=== PATIENT | female | born 1955 | race Caucasian/White ===

== ENCOUNTER 2022-01-14 08:11 | Outpatient (CLI) | payer MEDICARE, OTHER, SELFPAY ==
[2022-01-14 11:35] LABS: Cholesterol* 186 mg/dL (90-199)
[2022-01-14 11:36] LABS: HDL Cholesterol* 60 mg/dL (>=50); LDL Cholesterol Calculated 106 mg/dL (<100); Triglycerides* 101 mg/dL (40-149)
[2022-01-16 12:44] LABS: Albumin* 4.4 g/dL (3.3-5.0); Chloride* 103 mmol/L (96-114); Sodium* 140 mmol/L (135-149)
[2022-01-16 12:45] LABS: Potassium* 4.3 mmol/L (3.6-5.1)
[2022-01-16 12:47] LABS: Alkaline Phosphatase* 79 U/L (40-150); Aspartate Amino Transferase* 31 U/L (12-35); Bilirubin Total* 1.5 mg/dL (0.1-1.5); Blood Urea Nitrogen* 22 mg/dL (7-30); Carbon Dioxide* 27 mmol/L (20-32); Creatinine* 0.8 mg/dL (0.5-1.5); Estimated Glomerular Filt Rate 81 ml/min; Glucose* 108 mg/dL (60-115); Total Protein* 6.5 g/dL (6.0-8.3)
[2022-01-16 12:48] LABS: Alanine Aminotransferase* 25 U/L (4-35); Calcium* 9.4 mg/dL (8.4-10.6)
== END 2022-01-14 08:12 | disposition home or self-care (01) ==
LOC: NFLDREF 08:12
PROVIDERS: PCP Family Medicine; Visit Provider Family Medicine
DX: Z01.419 Encounter for gynecological examination (general) (routine) without abnormal findings (principal); E78.00 Pure hypercholesterolemia, unspecified; E03.9 Hypothyroidism, unspecified; E66.9 Obesity, unspecified; R74.8 Abnormal levels of other serum enzymes; R17 Unspecified jaundice
CPT/HCPCS: 80053; 80061; 84443

== ENCOUNTER 2022-02-13 15:01 | Outpatient (CLI) | payer MEDICARE, OTHER, SELFPAY ==
--- NOTE | 2022-02-13 15:20 | CRLHL7_ITS ---
For Patients: As a result of the Century Cures Act, medical imaging exams and procedure reports are released immediately into your electronic medical record. You may view this report before your referring provider. If you have questions, please contact your health care provider. BILATERAL SCREENING MAMMOGRAM WITH COMPUTER-AIDED DETECTION AND TOMOSYNTHESIS TECHNIQUE: CC and MLO views were obtained. These mammographic images have been obtained using full-field digital technique. These mammographic images were interpreted with the benefit of computer-aided detection. Breast Tomosynthesis was used in this interpretation. COMPARISON FILM: 02/12/21, 02/10/20, 02/04/19. FINDINGS: There are scattered areas of fibroglandular density IMPRESSION: There is no radiographic evidence for malignancy. ASSESSMENT: BI-RADS Category 1: Negative RECOMMENDATION: Routine screening mammogram in 1 year. A lay language report of this examination will be provided to the patient. Mo Pinzon M.D. Diagnostic Radiologist [email or web address] ALAINA/Dictated by: Mo Pinzon MD @ 02/14/2022 12:32:00 PM (Electronically Signed)
== END 2022-02-13 15:02 | disposition home or self-care (01) ==
LOC: MAMMO 15:05
PROVIDERS: PCP Family Medicine; Visit Provider Family Medicine
DX: Z12.31 Encounter for screening mammogram for malignant neoplasm of breast (principal)
CPT/HCPCS: 77063; 77067

== ENCOUNTER 2023-01-19 08:03 | Outpatient (CLI) | payer MEDICARE, OTHER, SELFPAY | END 2023-01-19 08:04 | disposition home or self-care (01) | LOC: NFLDREF 10:40 | PROVIDERS: PCP Family Medicine; Referring Provider Family Medicine; Visit Provider Family Medicine | DX: Z00.00 Encounter for general adult medical examination without abnormal findings (principal); E78.00 Pure hypercholesterolemia, unspecified; D64.9 Anemia, unspecified; R79.89 Other specified abnormal findings of blood chemistry; E03.9 Hypothyroidism, unspecified | CPT/HCPCS: 80053; 80061; 84439; 84443 ==

== ENCOUNTER 2023-02-17 13:29 | Outpatient (CLI) | payer MEDICARE, OTHER, SELFPAY ==
--- NOTE | 2023-02-17 13:40 | CRLHL7_ITS ---
For Patients: As a result of the Century Cures Act, medical imaging exams and procedure reports are released immediately into your electronic medical record. You may view this report before your referring provider. If you have questions, please contact your health care provider. BILATERAL SCREENING MAMMOGRAM WITH COMPUTER-AIDED DETECTION AND TOMOSYNTHESIS TECHNIQUE: CC and MLO views were obtained. These mammographic images have been obtained using full-field digital technique. These mammographic images were interpreted with the benefit of computer-aided detection. Breast Tomosynthesis was used in this interpretation. COMPARISON FILM: 02/13/22, 02/12/21, 02/10/20. FINDINGS: There are scattered areas of fibroglandular density IMPRESSION: There is no radiographic evidence for malignancy. ASSESSMENT: BI-RADS Category 2: Benign RECOMMENDATION: Routine screening mammogram in 1 year. A lay language report of this examination will be provided to the patient. Mo Pinzon M.D. Diagnostic Radiologist [email or web address] ALAINA/Dictated by: Mo Pinzon MD @ 02/18/2023 12:06:00 PM (Electronically Signed)
== END 2023-02-17 13:30 | disposition home or self-care (01) ==
LOC: MAMMO 13:30
PROVIDERS: PCP Family Medicine; Visit Provider Family Medicine
DX: Z12.31 Encounter for screening mammogram for malignant neoplasm of breast (principal)
CPT/HCPCS: 77063; 77067

== ENCOUNTER 2023-10-14 15:27 | Outpatient (CLI) | payer MEDICARE, OTHER, SELFPAY | END 2023-10-14 15:28 | disposition home or self-care (01) | LOC: NFLDREF 10-16 10:56 | PROVIDERS: PCP Family Medicine; Referring Provider Family Medicine; Visit Provider Family Medicine | DX: E03.9 Hypothyroidism, unspecified (principal) | CPT/HCPCS: 84443 ==

== ENCOUNTER 2023-10-20 09:04 | Outpatient (CLI) | payer MEDICARE, OTHER, SELFPAY | END 2023-10-20 09:05 | disposition home or self-care (01) | LOC: NFLDREF 10-21 07:04 | PROVIDERS: PCP Family Medicine; Referring Provider Family Medicine; Visit Provider Family Medicine | DX: E03.9 Hypothyroidism, unspecified (principal) | CPT/HCPCS: 84439; 84443 ==

== ENCOUNTER 2023-11-30 16:00 | Outpatient (CLI) | payer MEDICARE, OTHER, SELFPAY | END 2023-11-30 16:01 | disposition home or self-care (01) | LOC: NFLDREF 12-03 07:10 | PROVIDERS: PCP Family Medicine; Referring Provider Family Medicine; Visit Provider Family Medicine | DX: E03.9 Hypothyroidism, unspecified (principal) | CPT/HCPCS: 84443 ==

== ENCOUNTER 2024-01-26 07:30 | Outpatient (CLI) | payer MEDICARE, OTHER, SELFPAY ==
--- OUTSIDE RECORDS SUMMARY | 2024-01-26 12:27 | XMS_ITS | Clinical Summary ---
Author Organization [facility] Address [place], [place] [address] Care Team Providers Care Gis Coordinator Name Role Phone Glenn Waggoner MD Primary Care Provider + [phone] Allergies Active Allergy Reactions Criticality Noted Date Comments Amoxicillin Hives 02/02/2007 Sulfamethoxazole-Trimethoprim Hives 2006 Medications Medication Sig Dispensed Refills Start Date End Date Status levothyroxine (SYNTHROID) 150 mcg tablet 08/21/2020 Active atorvastatin (LIPITOR) 20 mg tablet 07/19/2020 Active multivitamin (Multiple Vitamins) tablet Take 1 Tablet by mouth once daily. 0 09/13/2020 Active Cinnamon Bark (Cinnamon) 500 mg capsule Takes 1000 mg a day 0 09/13/2020 Active vit O-wncvx-svsqis-bioflv -rudolph 1,000-50-50 mg TbER Take by mouth. 0 09/13/2020 Active Calcium-Cholecalcifer ol, D3, (Calcium 600 + D,3,) 600 mg calcium- 200 unit cap Take by mouth. 0 09/13/2020 Active Zwrfu-1-TED-EPA-Fish Oil (Fish Oil) 1,000 mg (120 mg-180 mg) cap Take by mouth. 0 09/13/2020 Active CPAPIndications:DEBI (obstructive sleep apnea) CPAP machine for home use at pressure 10cm/H2O, nasal mask x1/3month with nasal cushion x2/mo 1 Each 11 12/03/2022 Active Active Problems Problem Noted Date Diagnosed Date DEBI HST 07/29/2016 AHI-16 09/13/2020 Breast cancer 09/13/2008 Unspecified hypothyroidism 09/13/2008 Family History Medical History Relation Name Comments Thyroid Disease Brother Heart Disease Father DC at 39 and a gain at 61, last one fatal Thyroid Disease Mother Diabetes Paternal Grandfather Relation Name Status Comments Brother Father (Age 61) Mother Paternal Grandfather Social History Tobacco Use Types Packs/Day Years Used Date Smoking Tobacco: Never Smokeless Tobacco: Never Tobacco Cessation:Counseling Given: Yes Alcohol Use Standard Drinks/Week Comments Yes 0 (1 standard drink = 0.6 oz pur e alcohol) occ Social Connections Answer Date Recorded Frequency of Communication with Friends and Fami ly Not on file 06/08/2021 Financial Resource Strain Answer Date R ecorded Difficulty of Paying Living Expenses Not on file 06/08/2021 Difficulty of Paying Living Expenses Not on file 06/08/2021 Sex and Gender Information Value Date Recorded Sex Assigned at Not on file Gender Identity Not on file Sexual Orientation Not on file Obstetrics History Para Term AB IAB SAB Ectopic Multiple Livin g Live Births 2 Last Filed Vital Signs Vital Sign Reading Time Taken Comments Blood Pressure 148/87 12/03/2022 2:59 PM CDT Pulse 55 12/03/2022 2:59 PM CDT Temperature 37.4 ??C (99.4 ??F) 09/15/2008 1 0:47 AM CDT Respiratory Rate - - Oxygen Saturation 100% 12/03/2022 2:59 PM CDT Inhaled Oxygen Concentration - - Weight 80.6 kg (177 lb 12.8 oz) 12/03/2022 2:59 PM CDT Height 170.5 cm (5' 7.13) 12/03/2022 2:59 PM CD T Body Mass Index 27.74 12/03/2022 2:59 PM CDT Plan of Treatment Health Maintenance Due Date Last Done Comments Tdap 12/11/1966 Depression screening for age 12+ 1967 Hepatitis C screening for ag e 18-79 12/11/1973 Tetanus booster 1975 Lipids for age 45-75 12/11/2000 Mammogram for age 45-75 12/11/2000 Zoster (shingles) series for age 50+ (1 of 2) 12/11/2005 Colonoscopy through age 75 02/02/2017 02/02/2007 DEXA/DXA scan for age 65+ 12/11/2020 Medicare Wellness for age 65+ 12/11/2020 Pneumococcal series for age 65+ (1 of 1 - PCV) 12/11/2020 COVID-19 vaccine series (2022-24 season) 2023 03/27/2022, 10/01/2021, 04/12/2021, Additional history exists BMI (ht and wt on same day) for age 18+ 12/04/2023 12/03/2022, 09/13/2020 Influenza for age 65+ 02/07/2024 Care Teams Gis Coordinator Relationship Specialty Start Date End Date Glenn Waggoner MD [address] [place] [id number] PCP - General 02/02/07
== END 2024-01-26 07:31 | disposition home or self-care (01) ==
PROVIDERS: PCP Family Medicine; Referring Provider Family Medicine; Visit Provider Family Medicine
DX: Z00.00 Encounter for general adult medical examination without abnormal findings (principal); E78.00 Pure hypercholesterolemia, unspecified; E03.9 Hypothyroidism, unspecified; E05.80 Other thyrotoxicosis without thyrotoxic crisis or storm; D72.819 Decreased white blood cell count, unspecified
CPT/HCPCS: 80053; 80061; 82248; 84443

== ENCOUNTER 2024-03-25 14:43 | Outpatient (CLI) | payer MEDICARE, OTHER, SELFPAY ==
--- OUTSIDE RECORDS SUMMARY | 2024-03-25 14:46 | XMS_ITS | Clinical Summary ---
Author Organization [facility] Address [place], [place] [address] Care Team Providers Care Upkeep Mechanic Name Role Phone Glenn Waggoner MD Primary Care Provider + [phone] Allergies Active Allergy Reactions Criticality Noted Date [...] mg a day 0 09/13/2020 Active vit E-abrtv-fustme-bioflv -rudolph 1,000-50-50 mg TbER Take by mouth. 0 09/13/2020 Active Calcium-Cholecalcifer ol, D3, (Calcium 600 + D,3,) 600 mg calcium- 200 unit cap Take by mouth. 0 09/13/2020 Active Ojnii-0-CBL-EPA-Fish Oil (Fish Oil) 1,000 mg (120 mg-180 [...] Comments Thyroid Disease Brother Heart Disease Father [place] at 39 and a gain at 61, [...] 65+ (1 of 1 - PCV) 12/11/2020 BMI (ht and wt on same day) for age 18+ 12/04/2023 12/03/2022, 09/13/2020 COVID-19 vaccine series (2023- season) 2024 03/27/2022, 10/01/2021, 04/12/2021, Additional history exists Influenza for age 65+ 02/07/2024 Care Teams Upkeep Mechanic Relationship Specialty Start Date End Date Glenn Waggoner MD [address] [place] [id number] PCP - General 02/02/07
--- NOTE | 2024-03-25 15:00 | CRLHL7_ITS ---
For Patients: As a result of the Century Cures Act, medical imaging exams and procedure reports are released immediately into your electronic medical record. You may view this report before your referring provider. If you have questions, please contact your health care provider. BILATERAL SCREENING MAMMOGRAM WITH COMPUTER-AIDED DETECTION AND TOMOSYNTHESIS TECHNIQUE: CC and MLO views were obtained. These mammographic images have been obtained using full-field digital technique. These mammographic images were interpreted with the benefit of computer-aided detection. Breast Tomosynthesis was used in this interpretation. COMPARISON FILM: 02/17/23, 02/13/22, 02/12/21. FINDINGS: There are scattered areas of fibroglandular density. IMPRESSION: There is no radiographic evidence for malignancy. ASSESSMENT: BI-RADS Category 2: Benign RECOMMENDATION: Routine screening mammogram in 1 year. A lay language report of this examination will be provided to the patient. Mo Pinzon M.D. Diagnostic Radiologist [email or web address] SP/Dictated by: Mo Pinzon MD @ 03/31/2024 11:03:00 AM (Electronically Signed)
== END 2024-03-25 14:44 | disposition home or self-care (01) ==
LOC: MAMMO 14:44
PROVIDERS: PCP Family Medicine; Visit Provider Family Medicine
DX: Z12.31 Encounter for screening mammogram for malignant neoplasm of breast (principal)
CPT/HCPCS: 77063; 77067

== ENCOUNTER 2024-07-20 08:39 | Emergency (ER) | payer MEDICARE, OTHER, SELFPAY ==
[2024-07-20 08:58] VITALS: BP 140/86; PULSE 49; RESP 18; TEMP 36.4; O2SAT 99; BMI 27.4
--- NOTE | 2024-07-20 10:00 | ED.GENADULT ---
HPI - General Adult General Date Seen: 07/20/24 Chief complaint: Chest Pain Stated complaint: dizziness/chest pain Time Seen by Provider: 07/20/24 09:46 History of Present Illness HPI narrative: 68 yo F with a history of breast cancer, high cholesterol, osteoarthritis, abnormal liver function test in 2022, previously low white blood cell count. She presents to the ER this morning with left arm pain. She woke up at about 7:00 a.m. this morning with severe pain in her left arm that went down to her hand. The pain made her sweaty and lightheaded which lasted about a minute. She has had some persistent pain mostly in the left side of her chest ever since then it. It feels achy. Also some persistent mild ache in her left arm. No associated neck pain. No numbness down her arm. No swelling in her arm. No known injuries. 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 She did do some pushups and yoga class yesterday but that is not unusual for her. No other new activity or recent injury. She is not having any abdominal pain. No nausea. She is not really having trouble breathing. Chest and left arm pain is not really pleuritic, more of just an ache. She has no history of coronary disease. Risk factors include hypertension, high cholesterol, family history. No history of diabetes. She does recall that she had some chest pain about 10 years or so ago. At that time she had a workup and had a reassuring stress test. Related Data Home Medications ?Medication ?Instructions ?Recorded ?Confirmed ascorbic acid (vitamin C) 500 mg 1,000 mg PO .qd 01/16/22 07/12/24 capsule aspirin 81 mg tablet,delayed 81 mg PO DAILY 01/16/22 07/12/24 release calcium 600 mg (as 1 tab PO DAILY 01/16/22 07/12/24 carbonate)-vitamin D3 20 mcg (800 unit) tablet cinnamon bark 500 mg capsule 1,000 mg PO 01/16/22 07/12/24 multivitamin (Multiple Vitamins 1 tab PO QDAY 01/16/22 07/12/24 tablet) turmeric root extract 500 mg 500 mg PO QDAY 12/02/23 07/12/24 capsule ascorbic acid 30 mg-collagen, tab PO 01/28/24 07/12/24 hydrolyzed 833.3 mg tablet (Collagen Skin Renewal) Calcium, magnesium, zinc PO 07/15/24 07/15/24 Previous Rx's ?Medication ?Instructions ?Recorded atorvastatin 20 mg tablet 20 mg PO .Bedtime #90 tabs 01/28/24 levothyroxine 125 mcg capsule 125 mcg PO QDAY #90 caps 01/28/24 doxycycline hyclate 100 mg capsule 100 mg PO BID 7 days #14 caps 07/20/24 Allergies Allergy/AdvReac Type Severity Reaction Status Date / Time amoxicillin Allergy Mild Hives Verified 07/20/24 13:59 penicillin V Allergy Mild Hives Verified 07/20/24 13:59 sulfamethoxazole Allergy Mild Hives Verified 07/20/24 13:59 trimethoprim Allergy Mild Hives Verified 07/20/24 13:59 Sulfa (Sulfonamide Allergy Verified 07/20/24 13:59 Antibiotics) PFSH PFS Medical History (Updated 07/20/24 @ 15:32 by Julian Perez MD) Insomnia ?G47.00 - Insomnia, unspecified (ICD-10) Iatrogenic hyperthyroidism (10/21/23) ?E05.80 - Other thyrotoxicosis without thyrotoxic crisis or storm (ICD-10) Hx of bone density study ?Z92.89 - Personal history of other medical treatment (ICD-10) Osteoarthritis ?M19.90 - Unspecified osteoarthritis, unspecified site (ICD-10) Obstructive sleep apnea treated with continuous positive airway pressure (CPAP) (2016) ?G47.33 - Obstructive sleep apnea (adult) (pediatric) (ICD-10) ?Z99.89 - Dependence on other enabling machines and devices (ICD-10) Surgical History (Updated 07/14/23 @ 12:07 by Gabriella Norwood) Status post total right knee replacement (05/12/18) ?Z96.651 - Presence of right artificial knee joint (ICD-10) Status post left foot surgery (10/2016) ?Z98.890 - Other specified postprocedural states (ICD-10) History of lumpectomy of left breast (2002) ?Z98.890 - Other specified postprocedural states (ICD-10) History of section (1996) ?Z98.891 - History of uterine scar from previous surgery (ICD-10) Family History (Updated 01/28/24 @ 05:59 by Mary Aldana MD) Father Family history of early CAD Myocardial infarction, Onset Age: 39 Social History (Reviewed 07/12/24 @ 09:42 by Candace Philippe ~ [facility], [facility]) Narrative: , 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[employer], 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 exercises 7 days a week 5M daily , 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, 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 non-smoker social drinker- 6 wine/week What is your current living situation?: I presently have a place to live Problems where you live: no known problems In the past 12 months, utilities in danger of being shut off: no In past 12 months, lack of transportation kept you from medical appts, meetings, work, or getting things needed for daily living: no In the past 12 mos, have been you worried that your food would run out before you had money to buy more?: never true In the past 12 mos, the food you bought just didn't last and you didn't have money to buy more?: never true Smoking Status: Never smoker How often do you have a drink containing alcohol: never How often do you have six or more drinks on one occasion: Never AUDIT-C Alcohol total score: 0 Non-prescribed substance use: denies use How often does anyone, including family, friends and others, physically hurt you: never How often does anyone, including family, friends and others, insult or talk down to you: never How often does anyone, including family, friends and others, threaten you with harm: never How often does anyone, including family, friends and others, scream or curse at you: never service: No Exam Narrative: Exam Narrative: Constitutional: Appears well-developed and well-nourished. Alert. Conversant. Non toxic. HENT: Head: Atraumatic. Nose: Nose normal. Mouth/Throat: Oral mucosa is clear and moist. no trismus. Pharynx normal. Tonsils symmetric. No tonsillar enlargement, erythema, or exudate. Eyes: Conjunctivae normal. EOM normal. Pupils equal, round, and reactive to light. No scleral icterus. Neck: Normal range of motion. Neck supple. No tracheal deviation present. No JVD Cardiovascular: Normal rate, regular rhythm. No gallop. No friction rub. No murmur heard. Symmetric radial and PT artery pulses Pulmonary/Chest: Effort normal. No stridor. No respiratory distress. No wheezes. No rales. No rhonchi . No tenderness. No back tenderness. Normal range of motion her left shoulder without pain. Abdominal: Soft. Bowel sounds normal. No distension. No mass. No tenderness. No rebound. No guarding. Musculoskeletal: No tenderness of the C, T spine. No shoulder tenderness or scapula tenderness RUE: Normal range of motion. No tenderness. No deformity LUE: Normal range of motion. No tenderness. No deformity RLE: Normal range of motion. No edema. No tenderness. No deformity LLE: Normal range of motion. No edema. No tenderness. No deformity Neurological: Alert and oriented to person, place, and time. Normal strength. CN II-VII intact. No sensory deficit. GCS eye subscore is 4. GCS verbal subscore is 5. GCS motor subscore is 6. Normal coordination Skin: Skin is warm and dry. No rash noted. No pallor. Normal capillary refill. Psychiatric: Normal mood. Normal affect. Const: Vital Signs, click to edit/add: Vital Signs - 24 hr 07/20/24 08:58 07/20/24 14:06 Temperature 97.6 F Pulse Rate [Pulse Oximeter] 49 L 52 L Respiratory Rate 18 18 Blood Pressure [Ri ght Upper Arm] 140/86 H 125/75 Pulse Oximetry 99 98 Oxygen Delivery Me thod Room Air Room Air Course Vital Signs Vital signs: Initial Vital Signs Temperature 97.6 F 07/20/24 08:58 Temperature Source Temporal Artery Scan 07/20/24 08:58 Pulse Rate 49 L 07/20/24 08:58 Respiratory Rate 18 07/20/24 08:58 Blood Pressure 140/86 H 07/20/24 08:58 Blood Pressure Mean 104 07/20/24 08:58 Pulse Oximetry 99 07/20/24 08:58 Oxygen Delivery Method Room Air 07/20/24 08:58 Vital Signs Temperature 97.6 F 07/20/24 08:58 Pulse Rate 49 L 07/20/24 08:58 Respiratory Rate 18 07/20/24 08:58 Blood Pressure 140/86 H 07/20/24 08:58 Pulse Oximetry 99 07/20/24 08:58 Oxygen Delivery Method Room Air 07/20/24 08:58 Temperature 97.6 F 07/20/24 08:58 Pulse Rate 52 L 07/20/24 14:06 Respiratory Rate 18 07/20/24 14:06 Blood Pressure 125/75 07/20/24 14:06 Pulse Oximetry 98 07/20/24 14:06 Oxygen Delivery Method Room Air 07/20/24 14:06 Medications Administered Medications: Discontinued Medications Generic Name Dose Route Start Last Admin Trade Name Clara PRN Reason Stop Dose Admin Aspirin 162 mg 07/20/24 10:04 07/20/24 10:47 Aspirin 81 Mg Tab.Chew PO 07/20/24 10:05 162 mg ONCE ONE Administration Medical Decision Making MDM Narrative Medical decision making narrative: This patient presents to the ER today for evaluation of left arm pain and chest pain that began this morning.. Differential was broad. No evidence of palpitations, syncope or other cardiac dysrhythmia. We considered possible ACS, however workup with EKG and serial troponins here in the ER is normal. Given time since onset of symptoms, I do not think the patient needs to be admitted for further sets of enzymes. EKG shows no evidence for pericarditis. Clinical presentation not suggestive of myocarditis. Chest imaging shows no evidence for pneumothorax, pulmonary edema, pleural effusion, rib fracture, cardiomegaly. Mediastinum is normal on the x-ray. The patient has no ripping or tearing pain through to the back and has symmetric pulses on exam, no other acute neuro findings so I doubt aortic dissection. Risk of radiation and contrast exposure would outweigh the benefit of CT angiogram. We considered PE for this patient. Abnormal D-dimer prompted CT PA. Fortunately no evidence for PE. CT scan does show nonspecific ground-glass opacities in her lungs which could be consistent with infection or pneumonia. She has not had any cough but these opacities oz lung with small pleural effusions might explain her chest discomfort. Will treat her with a course of doxycycline for possible pneumonia. Discussed the the patient needs follow-up with PCP for repeat imaging within the next month or 2 to make sure there is no persistent opacities. No wheezing or bronchospasm to suggest COPD/asthma. No signs of chest wall cellulitis, shingles, injury. With reasonable clinical confidence, I think the patient is safe for outpatient follow up. Discussed return precautions. Questions answered. Patient voices comfort with the plan. Lab Data Labs: Lab Results 07/20/24 07/20/24 07/20/24 Range/Units 10:04 10:50 13:00 WBC 4.53 (4.50-11.00) K/uL RBC 4.02 (4.00-5.20) m/uL Hgb 12.8 (12.0-16.0) gm/dL Hct 38.6 (33.0-51.0) % MCV 96 (80-100) fL MCH 32 (26-34) pg MCHC 33 (32-36) gm/dL RDW Coeff of Kaleb 12.8 (11.5-15.5) % Plt Count 140 (140-440) K/uL Neut % (Auto) 73.8 H (42.0-72.0) % Lymph % (Auto) 13.9 L (20-44) % Pershing % (Auto) 9.3 (0.0-11.0) % Eos % (Auto) 2.4 (0.0-7.0) % Baso % (Auto) 0.4 (0.0-3.0) % Neut # (Auto) 3.30 (1.7-7.0) K/uL Lymph # (Auto) 0.60 L (0.90-2.90) K/uL Pershing # (Auto) 0.40 (0.00-0.90) K/UL Eos # (Auto) 0.11 (0.00-0.50) K/uL Baso # (Auto) 0.02 (0.00-0.30) K/uL Abs Immat Gran (auto) 0.01 (0.00-0.30) K/uL Imm/Tot Granulo (auto) 0.2 % D-Dimer Quant (PE/DVT) 1.11 H (0.00-0.50) ug/ml Sodium 138 (135-149) mmol/L Potassium 4.1 (3.6-5.1) mmol/L Chloride 103 (96-114) mmol/L Carbon Dioxide 29 (20-32) mmol/L Anion Gap 6 L (7-15) mEq/L BUN 25 (7-30) mg/dL Creatinine 0.7 (0.5-1.5) mg/dL Estimated Creat Clear 54.32 Estimated GFR 94 ml/min Glucose 101 (60-115) mg/dL Calcium 9.0 (8.4-10.6) mg/dL POC Troponin I 0.00 L 0.00 L (0.01-0.04) ng/ml Imaging Data CT scan - chest: Radiologist's impression: IMPRESSION: 1. No acute pulmonary embolism. 2. Patchy bilateral nodular opacities, the largest of which measure 1.6 cm in the bilateral lower lobes. These are nonspecific, and could be infectious/inflammatory in etiology, but metastases are not excluded in the setting of a history of breast cancer. Consider a follow-up CT chest to ensure resolution. 3. Small right pleural effusion with mild diffuse ground-glass opacities, which may reflect mild pulmonary edema. 4. Nodular soft tissue density in the anterior mediastinum measuring up to 2.1 cm in thickness. This could reflect thymic rebound hyperplasia, but is indeterminate. Attention on follow-up. 5. Additional mild nodular soft tissue in the subcutaneous soft tissues anterior to the sternum is also indeterminate. ECG Data Attestation: I personally reviewed and interpreted this ECG as follows: Interpretation: Sinus bradycardia Rate: 48 ID: [id number] QRS axis: Normal axis. No pathologic Q-waves ST segment/T wave: No ST segment elevation or depression. Nonspecific T-wave flattening QTc: 437 Discharge Plan Discharge Clinical Impression: Chest pain, Atypical pneumonia Patient Disposition: Home, Self-Care Condition: Stable Instructions: Chest Pain (DC), Community Acquired Pneumonia (DC) Additional Instructions: As we discussed, please come back to the ER right away if you have more chest pain, trouble breathing or other worsening symptoms Your CT scan shows small smudge is in both of your lungs that indicate probable pneumonia. Please start on the antibiotic today to treat the pneumonia Follow-up with your regular doctor for a recheck and ask your regular doctor to her to arrange a repeat CT scan of your lungs within 1-2 months to make sure the smudges in your lungs are gone after treatment Prescriptions: New doxycycline hyclate 100 mg capsule 100 mg PO BID 7 Days Qty: 14 0RF No Action turmeric root extract 500 mg capsule 500 mg PO QDAY Calcium, magnesium, zinc PO calcium carbonate-vitamin D3 600 mg-20 mcg (800 unit) tablet 1 tab PO DAILY cinnamon bark 500 mg capsule 1,000 mg PO multivitamin [Multiple Vitamins] Tablet 1 tab PO QDAY aspirin 81 mg tablet,delayed release (DR/EC) 81 mg PO DAILY ascorbic acid (vitamin C) 500 mg capsule 1,000 mg PO .qd Collagen Skin Renewal 30-833.3 mg tablet PO atorvastatin 20 mg tablet 20 mg PO .Bedtime Qty: 90 3RF levothyroxine 125 mcg capsule 125 mcg PO QDAY Qty: 90 3RF Follow Up/Referrals: Mary Aldana MD [Primary Care Provider] - Stand Alone Forms: [employer] Info Instructions
[2024-07-20] MEDS: ASPIRIN 81 MG TAB.CHEW 162 MG PO (10:47)
[2024-07-20 11:02] LABS: Basophils Absolute Auto 0.02 K/uL (0.00-0.30); Basophils Percent Auto 0.4 % (0.0-3.0); Eosinophils Absolute Auto 0.11 K/uL (0.00-0.50); Eosinophils Percent Auto 2.4 % (0.0-7.0); Hematocrit 38.6 % (33.0-51.0); Hemoglobin* 12.8 gm/dL (12.0-16.0); Immature Granulocytes Abs Auto 0.01 K/uL (0.00-0.30); Immature Granulocytes Pct Auto 0.2 %; Lymphocytes Percent Auto 13.9 % (20-44); Mean Corpuscular HGB Conc 33 gm/dL (32-36); Mean Corpuscular Hemoglobin 32 pg (26-34); Mean Corpuscular Volume 96 fL (80-100); Monocytes Percent Auto 9.3 % (0.0-11.0); Neutrophils Percent Auto 73.8 % (42.0-72.0); Platelet Count* 140 K/uL (140-440); RDW Coefficient of Variation % 12.8 % (11.5-15.5); Red Blood Count 4.02 m/uL (4.00-5.20); White Blood Count* 4.53 K/uL (4.50-11.00)
[2024-07-20 11:03] LABS: Slide Review Reflex No
--- OUTSIDE RECORDS SUMMARY | 2024-07-20 11:10 | XMS_ITS | Clinical Summary ---
Author Organization [facility] Address [place], [place] [address] Care Team Providers Care Rn Postpartum Name Role Phone Glenn Waggoner MD Primary Care Provider + [phone] Allergies Active Allergy Reactions Criticality Noted Date Comments Amoxicillin Hives 02/02/2007 Sulfamethoxazole-Trimethoprim Hives 2006 Medications levothyroxine (SYNTHROID) 150 mcg tablet 08/21/2020 Active atorvastatin (LIPITOR) 20 mg tablet 07/19/2020 Active multivitamin (Multiple Vitamins) tablet Take 1 Tablet by mouth once daily. 0 09/13/2020 Active Cinnamon Bark (Cinnamon) 500 mg capsule Takes 1000 mg a day 0 09/13/2020 Active vit Q-xombf-ojjnhp- bioflv-rudolph 1,000-50-50 mg TbER Take by mouth. 0 09/13/2020 Active Calcium-Choleca lciferol, D3, (Calcium 600 + D,3,) 600 mg calcium- 200 unit cap Take by mouth. 0 09/13/2020 Active Itiul-1-JLM-EPA -Fish Oil (Fish Oil) 1,000 mg (120 mg-180 mg) cap Take by mouth. 0 09/13/2020 Active CPAPIndications :DEBI (obstructive sleep apnea) CPAP machine for home use at pressure 10cm/H2O, nasal mask x1/3month with nasal cushion x2/mo 1 Each 11 12/03/2022 Active Active Problems Problem Noted Date Diagnosed Date DEBI HST 07/29/2016 AHI-16 09/13/2020 Breast cancer 09/13/2008 Unspecified hypothyroidism 09/13/2008 Family History Medical History Relation Name Comments Thyroid Disease Brother Heart Disease Father [place] at 39 and a gain at 61, [...] Paying Living Expenses Not on file 06/08/2021 Comments No Sex and Gender Information Value Date Recorded Sex Assigned at Not on file Legal Sex Female 5:27 AM [employer] Gender Identity Not on file Sexual Orientation Not on file Occupation Industry Job Start Date Job End Date Not on file Not on file Not on file Not on file Obstetrics History Para Term AB IAB SAB Ectopic Multiple Livin g Live Births 2 Last Filed Vital Signs Vital Sign Reading Time Taken Comments Blood Pressure 148/87 12/03/2022 2:59 PM CDT Pulse 55 12/03/2022 2:59 PM CDT Temperature 37.4 C (99.4 F) 09/15/2008 10:47 AM CDT Respiratory Rate - - Oxygen [...] 45-75 12/11/2000 Mammogram for age 45-75 12/11/2000 Pneumococcal series for age 50+ (1 of 1 - PCV) 12/11/2005 Zoster (shingles) series for age 50+ (1 of 2) 12/11/2005 Colonoscopy through age 75 02/02/2017 02/02/2007 DEXA/DXA scan for age 65+ 12/11/2020 Medicare Wellness for age 65+ 12/11/2020 BMI (ht and wt on same day) for age 18+ 12/04/2023 12/03/2022, 09/13/2020 COVID-19 vaccine series ( season) 2024 03/27/2022, 10/01/2021, 04/12/2021, Additional history exists Influenza for age 65+ 02/07/2024 RSV vaccine for adults or (1 - 1-dose 75+ series) 12/11/2030 Insurance [employer] [id number] MEDICARE [place] ONLY [place] [id number] Care Teams Rn Postpartum Relationship Specialty Start Date End Date Glenn Waggoner MD [address] [place] [id number] PCP - General 02/02/07
[2024-07-20 11:18] LABS: Chloride* 103 mmol/L (96-114)
[2024-07-20 11:19] LABS: Potassium* 4.1 mmol/L (3.6-5.1); Sodium* 138 mmol/L (135-149)
[2024-07-20 11:21] LABS: Creatinine* 0.7 mg/dL (0.5-1.5); Est. Creatinine Clearance* 54.32; Estimated Glomerular Filt Rate 94 ml/min
[2024-07-20 11:22] LABS: Anion Gap 6 mEq/L (7-15); Blood Urea Nitrogen* 25 mg/dL (7-30); Carbon Dioxide* 29 mmol/L (20-32); Glucose* 101 mg/dL (60-115)
[2024-07-20 11:25] LABS: D Dimer Quantitative* 1.11 ug/ml (0.00-0.50)
[2024-07-20 14:06] VITALS: BP 125/75; PULSE 52; RESP 18; O2SAT 98
== END 2024-07-20 15:45 | disposition home or self-care (01) ==
PROVIDERS: Emergency Provider Emergency Medicine; PCP Family Medicine
DX: J18.9 Pneumonia, unspecified organism (principal); R07.89 Other chest pain
CPT/HCPCS: 36415; 71275; 80048; 84484; 85025; 85379; 93005; 99283; 99284; 99285; A9270; Q9967

== ENCOUNTER 2024-08-23 13:33 | Outpatient (CLI) | payer MEDICARE, OTHER, SELFPAY ==
--- NOTE | 2024-08-23 14:00 | CRLHL7_ITS ---
For Patients: As a result of the Century Cures Act, medical imaging exams and procedure reports are released immediately into your electronic medical record. You may view this report before your referring provider. If you have questions, please contact your health care provider. Indication: Follow-up abnormal CT Technique: CT Chest WITH 75 CC ISOVUE [address] Please note that all CT scans at this facility use dose modulation, iterative reconstruction, and/or weight-based dosing when appropriate to reduce radiation dose to as low as reasonably achievable. Comparison: 09/17/2024 Findings: Increased right pleural effusion with partial collapse of the right lower lobe. Multiple nodular densities within the left lower lobe are present which measure up to 5 millimeters, slightly diminished in size compared to the prior study. There is also a nodular density along the left cardiac margin measuring 1.7 cm, similar. Nodular density measuring 1 cm in the anterior right lung is present. No pulmonary embolism or aortic dissection. Discogenic spurring midthoracic spine. Prominent degenerative disc disease at the thoracolumbar junction. No vertebral body fracture or suspicious osseous lesion. Persistent lobular soft tissue density within the left upper mediastinum and anterior to the sternum. Impression: Persistent lobular soft tissue densities within the prevascular upper mediastinum and presternal spaces, concerning for malignancy in a patient with a history of breast cancer. CT PET recommended unless additional comparison studies are available elsewhere. Increased right pleural effusion with partial collapse of the right lower lobe, increased compared to the prior study. Trace amount of pericardial fluid. Nodular densities within the lungs are slightly decreased in size within the left lower lobe although other nodular densities remains similar. These could also be assessed with CT PET. Please note that all CT scans at this facility use dose modulation, iterative reconstruction, and/or weight-based dosing when appropriate to reduce radiation dose to as low as reasonably achievable. Dictated by Mo Pinzon MD @ 08/23/2024 3:24:08 PM (Electronically Signed)
[2024-08-23 14:07] LABS: Estimated Glomerular Filt Rate 61 ml/min
== END 2024-08-23 13:34 | disposition home or self-care (01) ==
LOC: CT 13:34
PROVIDERS: PCP Family Medicine; Visit Provider Family Medicine
DX: R93.89 Abnormal findings on diagnostic imaging of other specified body structures (principal); J90 Pleural effusion, not elsewhere classified; R91.8 Other nonspecific abnormal finding of lung field; Z85.3 Personal history of malignant neoplasm of breast
CPT/HCPCS: 36415; 71260; 82565; Q9967

== ENCOUNTER 2024-08-24 09:26 | Outpatient (CLI) | payer MEDICARE, OTHER, SELFPAY | END 2024-08-24 09:27 | disposition home or self-care (01) | LOC: NFLDREF 09:27 | PROVIDERS: PCP Family Medicine; Visit Provider Family Medicine | DX: R53.1 Weakness (principal) | CPT/HCPCS: 80053 ==

== ENCOUNTER 2024-08-26 10:01 | Outpatient (CLI) | payer MEDICARE, OTHER, SELFPAY ==
[2024-08-26 10:05] VITALS: BP 138/87; PULSE 68; RESP 16; O2SAT 97
--- NOTE | 2024-08-26 11:09 | CRLHL7_ITS ---
For Patients: As a result of the Century Cures Act, medical imaging exams and procedure reports are released immediately into your electronic medical record. You may view this report before your referring provider. If you have questions, please contact your health care provider. INDICATION: Post right thoracocentesis. TECHNIQUE: Chest 1 views. COMPARISON: CT chest August 23, 2024 FINDINGS/IMPRESSION: Interval improvement in the right-sided pleural effusion, status post thoracocentesis. Pleura fluid now appears small in volume with adjacent compressive atelectasis. No pneumothorax. Cardiomediastinal silhouette is within normal limit. No significant left-sided effusion. Dictated by Chasidy Castañeda MD @ 08/26/2024 12:09:15 PM (Electronically Signed)
--- NOTE | 2024-08-26 11:27 | PM.PROC ---
Procedure Note Date Seen: 08/26/24 Will [facility] bill your pro fee for this procedure?: Yes Pre-op diagnosis: 1. New right pleural effusion. Post-op diagnosis: same Procedure: 1. Ultrasound-guided right thoracentesis. Procedure Description: Ultrasound was brought onto the field and a right pleural effusion was visualized. 1% lidocaine was used to anesthetize the skin over the rib and local anesthetic was also injected to anesthetize the needle tract over the rib. A small skin meka was made with 11 blade scalpel and a thoracentesis needle with an angio cath was advanced into the right chest over the rib under US guidance. When the needle with the catheter was in the chest cavity, the needle was withdrawn and thoracentesis catheter was advanced further into the chest without difficulties. Slightly bloody but clear yellow fluid was aspirated from the chest and placed into 3 syringes to send for culture and fluid cytology. A total of 1200 cc of fluid was removed from the chest. Given the large volume removed, I elected to stop the procedure even though there was still residual fluid in the chest. The catheter was then withdrawn and skin incision was closed with Dermabond. Patient tolerated procedure well. Post procedure CXR was ordered. EBL: none Complications: none Anesthesia: local Surgeon: Hannah Chambers MD Estimated blood loss (mL): 2 Pathology: specimen obtained, sent to pathology Condition: stable Disposition: other (home)
[2024-08-26 11:30] VITALS: BP 138/87; PULSE 68; RESP 16; O2SAT 97
[2024-08-26 11:52] LABS: Albumin* 3.8 g/dL (3.3-5.0)
[2024-08-26 11:55] LABS: Cholesterol* 124 mg/dL (90-199); Lactate Dehydrogenase* 219 U/L (120-246); Total Protein* 6.5 g/dL (6.0-8.3)
[2024-08-26 11:56] LABS: INR 1.09 (0.91-1.10)
[2024-08-26 12:33] LABS: Mononuclear WBC Body Fluid* 80 %; Polynuclear WBC Body Fluid* 20 %; RBC, Body Fluid* 18000 Cells/uL; WBC, Body Fluid* 4428 Cells/uL
[2024-08-26 12:39] LABS: BF Color Blood Tinged; BF Total Volume* 150
[2024-08-26 12:40] LABS: BF Clarity* Cloudy
[2024-08-26 12:57] LABS: Albumin Body Fluid* 2.5 gm/dL; Amylase Body Fluid* 38 U/L; Cholesterol Body Fluid* 69 mg/dL; Glucose Body Fluid* 90 mg/dL; LDH Body Fluid* 309 U/L; pH Body Fluid* 8.5
== END 2024-08-26 11:45 | disposition home or self-care (01) ==
LOC: US 10:02
PROVIDERS: PCP Family Medicine; Visit Provider Surgery
DX: J90 Pleural effusion, not elsewhere classified (principal); J98.59 Other diseases of mediastinum, not elsewhere classified; Z85.3 Personal history of malignant neoplasm of breast; Z98.890 Other specified postprocedural states; E03.9 Hypothyroidism, unspecified
CPT/HCPCS: 32555; 36415; 71045; 82040; 82042; 82150; 82465; 82945; 83615; 83986; 84155; 84157; 84311; 85610; 87015; 87070; 87102; 87116; 87205; 88112; 89051

== ENCOUNTER 2024-09-14 11:08 | Outpatient (CLI) | payer MEDICARE, OTHER, SELFPAY | END 2024-09-14 11:09 | disposition home or self-care (01) | PROVIDERS: PCP Family Medicine; Visit Provider Family Medicine | DX: E78.00 Pure hypercholesterolemia, unspecified (principal); E03.9 Hypothyroidism, unspecified; R53.83 Other fatigue; J98.59 Other diseases of mediastinum, not elsewhere classified; J90 Pleural effusion, not elsewhere classified | CPT/HCPCS: 80053; 82607; 84443 ==

== ENCOUNTER 2024-11-14 08:58 | Outpatient (CLI) | payer MEDICARE, OTHER, SELFPAY ==
[2024-11-14 10:44] LABS: Basophils Percent Auto 0.6 % (0.0-3.0); Eosinophils Percent Auto 3.5 % (0.0-7.0); Hematocrit* 40.2 % (33.0-51.0); Hemoglobin* 13.1 gm/dL (12.0-16.0); Immature Granulocytes Pct Auto 0.6 %; Lymphocytes Percent Auto 6.9 % (20-44); Mean Corpuscular HGB Conc 33 gm/dL (32-36); Mean Corpuscular Hemoglobin 31 pg (26-34); Mean Corpuscular Volume 96 fL (80-100); Monocytes Percent Auto 14.2 % (0.0-11.0); Neutrophils Percent Auto 74.2 % (42.0-72.0); Platelet Count* 194 K/uL (140-440); RDW Coefficient of Variation % 13.9 % (11.5-15.5); Red Blood Count* 4.18 m/uL (4.00-5.20); White Blood Count* 3.17 K/uL (4.50-11.00)
[2024-11-14 10:46] LABS: Slide Review Reflex No
== END 2024-11-14 08:59 | disposition home or self-care (01) ==
LOC: NPINS 09:00
PROVIDERS: PCP Family Medicine; Visit Provider Internal Medicine Hematology & Oncology
DX: C83.08 Small cell B-cell lymphoma, lymph nodes of multiple sites (principal)
CPT/HCPCS: 85025

== ENCOUNTER 2024-11-21 09:04 | Outpatient (CLI) | payer MEDICARE, OTHER, SELFPAY ==
[2024-11-21 10:24] LABS: Basophils Percent Auto 0.7 % (0.0-3.0); Hematocrit 37.5 % (33.0-51.0); Hemoglobin* 12.2 gm/dL (12.0-16.0); Immature Granulocytes Pct Auto 0.2 %; Lymphocytes Percent Auto 15.5 % (20-44); Mean Corpuscular HGB Conc 33 gm/dL (32-36); Mean Corpuscular Hemoglobin 32 pg (26-34); Mean Corpuscular Volume 97 fL (80-100); Neutrophils Percent Auto 67.6 % (42.0-72.0); Platelet Count* 157 K/uL (140-440); RDW Coefficient of Variation % 14.2 % (11.5-15.5); Red Blood Count 3.85 m/uL (4.00-5.20); White Blood Count* 4.25 K/uL (4.50-11.00)
[2024-11-21 10:33] LABS: Slide Review Reflex Yes
[2024-11-21 11:47] LABS: Slide Review Acceptable Review (Acceptable)
== END 2024-11-21 09:05 | disposition home or self-care (01) ==
LOC: NPINS 09:07
PROVIDERS: PCP Family Medicine; Visit Provider Internal Medicine Hematology & Oncology
DX: C83.08 Small cell B-cell lymphoma, lymph nodes of multiple sites (principal); Z79.899 Other long term (current) drug therapy
CPT/HCPCS: 85025

== ENCOUNTER 2024-11-28 08:35 | Outpatient (CLI) | payer MEDICARE, OTHER, SELFPAY ==
[2024-11-28 10:48] LABS: Basophils Percent Auto 1.5 % (0.0-3.0); Eosinophils Percent Auto 9.6 % (0.0-7.0); Hematocrit 38.5 % (33.0-51.0); Hemoglobin* 12.7 gm/dL (12.0-16.0); Lymphocytes Percent Auto 15.4 % (20-44); Mean Corpuscular HGB Conc 33 gm/dL (32-36); Mean Corpuscular Hemoglobin 32 pg (26-34); Mean Corpuscular Volume 96 fL (80-100); Monocytes Percent Auto 17.9 % (0.0-11.0); Neutrophils Percent Auto 55.6 % (42.0-72.0); Platelet Count* 141 K/uL (140-440); RDW Coefficient of Variation % 13.6 % (11.5-15.5); Red Blood Count 4.02 m/uL (4.00-5.20); White Blood Count* 3.24 K/uL (4.50-11.00)
[2024-11-28 10:59] LABS: Slide Review Reflex No
== END 2024-11-28 08:36 | disposition home or self-care (01) ==
LOC: NPINS 08:36
PROVIDERS: PCP Family Medicine; Visit Provider Internal Medicine Hematology & Oncology
DX: C83.08 Small cell B-cell lymphoma, lymph nodes of multiple sites (principal)
CPT/HCPCS: 85025

== ENCOUNTER 2025-04-06 08:35 | Outpatient (CLI) | payer MEDICARE, OTHER, SELFPAY | END 2025-04-06 08:36 | disposition home or self-care (01) | LOC: NFLDREF 04-07 05:53 | PROVIDERS: PCP Family Medicine; Referring Provider Family Medicine; Visit Provider Family Medicine | DX: E78.00 Pure hypercholesterolemia, unspecified (principal); E03.9 Hypothyroidism, unspecified; E55.9 Vitamin D deficiency, unspecified; R53.83 Other fatigue | CPT/HCPCS: 80053; 80061; 82306; 84439; 84443 ==

== ENCOUNTER 2025-04-10 13:47 | Outpatient (CLI) | payer MEDICARE, OTHER, SELFPAY ==
--- NOTE | 2025-04-10 14:00 | CRLHL7_ITS ---
For Patients: As a result of the Century Cures Act, medical imaging exams and procedure reports are released immediately into your electronic medical record. You may view this report before your referring provider. If you have questions, please contact your health care provider. COMPARISON: 03/25/2024, 02/17/2023, 02/13/2022 TECHNIQUE: Digital mammogram in CC and MLO projections including computer-aided detection (CAD) and tomosynthesis. BREAST COMPOSITION: There are scattered areas of fibroglandular density. FINDINGS: No suspicious findings. ASSESSMENT: BI-RADS 2 Benign RECOMMENDATION: Annual screening mammogram. A lay language report of this examination will be provided to the patient. Dictated by: Mo Pinzon MD @ 04/11/2025 09:57:31 (Electronically Signed)
== END 2025-04-10 13:48 | disposition home or self-care (01) ==
LOC: MAMMO 13:48
PROVIDERS: PCP Family Medicine; Visit Provider Family Medicine
DX: Z12.31 Encounter for screening mammogram for malignant neoplasm of breast (principal)
CPT/HCPCS: 77063; 77067

== ENCOUNTER 2025-05-24 13:15 | Outpatient (CLI) | payer MEDICARE, OTHER, SELFPAY ==
--- NOTE | 2025-05-24 13:30 | CRLHL7_ITS ---
For Patients: As a result of the Century Cures Act, medical imaging exams and procedure reports are released immediately into your electronic medical record. You may view this report before your referring provider. If you have questions, please contact your health care provider. XR DXA Bone Mineral Density (BMD) Reason for exam: Asymptomatic menopausal state. Current height (in): 68.0. Weight (lb): 170.0. Menopause age: 47. Ethnicity: White. 1. Have you had a previous hip or vertebral fracture? No. 2. Have you had any fractures during your adult life which did not result from significant trauma (e.g., auto accident)? No. 3. Did either of your parents have a hip fracture? No. 4. Do you smoke? No. 5. Have you ever taken Glucocorticoids? Yes. 6. Do you have rheumatoid arthritis? No. 7. Do you have secondary osteoporosis? No. 8. Do you drink 3 or more alcoholic drinks per day? No. 9. Are you being treated for osteoporosis? No. 10. Have you ever taken any of the following medications: Actonel, Evista, Fosamax, Miacalcin, Reclast, Boniva, Forteo, HRT (i.e. estrogen/hormone therapy), Protelos, Prolia, Vitamin D, Calcium, other ??? please specify. ANSWER: Yes, calcium, vitamin D. 11. Do you have any of the following medical conditions: Anorexia or bulimia, asthma or emphysema, end stage renal disease, hyperparathyroidism, any seizure disorders, cancer, inflammatory bowel diseases, hysterectomy, other ??? please specify. ANSWER: Yes, cancer. 12. What was your maximum height (inches)? 68. 13. Do you perform weight bearing exercise regularly? Yes. 14. Do you regularly consume dairy products? Yes. 15. Do you drink caffeinated beverages? Yes. 16. At what age did your period start? 12. 17. Are you premenopausal? No. 18. How many full term pregnancies have you had? 2. 19. Have you ever missed your period for more than 6 months in a row (not including or menopause)? No. TECHNIQUE: Bone mineral density study was performed using the [employer]. FINDINGS: The results of the study expressed as bone mineral density (BMD) are as follows: Lumbar spine L1 to L4: BMD: 1.402 g/cm2. T-score: 3.2. Z-score: 5.3. Neck Left: BMD: 0.919 g/cm2. T-score: 0.6. Z-score: 2.4. Right: BMD: 0.986 g/cm2. T-score: 1.2. Z-score: 3.0. Total Left: BMD: 0.955 g/cm2. T-score: 0.1. Z-score: 1.6. Right: BMD: 0.981 g/cm2. T-score: 0.3. Z-score: 1.8. IMPRESSION: Normal bone density. *Comparison exams done prior to 11/2019 were performed on different unit, [facility]. COMPARISON: Compared with scan of 02/04/2018, the bone mineral density has decreased by 2.3 percent at the spine and decreased by 5.0 percent at the hip. Mo Pinzon M.D. Diagnostic Radiologist [email or web address] bM/Dictated by: Mo Pinzon MD @ 05/24/2025 2:29:00 PM (Electronically Signed)
== END 2025-05-24 13:16 | disposition home or self-care (01) ==
PROVIDERS: PCP Family Medicine; Visit Provider Family Medicine
DX: Z78.0 Asymptomatic menopausal state (principal)
CPT/HCPCS: 77080